=== PATIENT | male | born 1960 | race Caucasian/White ===

== ENCOUNTER 2024-05-08 15:20 | Emergency (ER) | payer BC ==
[~2024-05-08] VITALS: Ht 175.3 cm; Wt 90.9 kg
[2024-05-08] MEDS ORDERED: TAMIFLU 75MG75 MG PO (17:15)
[2024-05-08] MEDS ORDERED: Oseltamivir 75 MG CAP PO ONE (17:15)
[2024-05-08 17:19] VITALS: BP 121/72
== END 2024-05-08 17:30 | disposition home or self-care (01) ==
LOC: ED 15:20
DX: J10.1 Influenza due to other identified influenza virus with other respiratory manifestations (principal)